=== PATIENT | female | born 1990 | race Asian ===

== ENCOUNTER 2017-01-23 16:38 | Emergency (ER) | payer SELFPAY ==
[~2017-01-23] VITALS: Ht 160 cm; Wt 54.4 kg
[2017-01-23 16:31] VITALS: BP 107/73
[~2017-01-23 16:38] MED LIST: NKM
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
[2017-01-23] MEDS ORDERED: ROBAXIN-750750 MG PO (18:05)
[2017-01-23] MEDS ORDERED: NAPROXEN500 M1 ORAL (18:05)
[2017-01-23 18:12] VITALS: BP_SYST 107; BP_SYST 109; BP_DIAS 73; BP_DIAS 74
--- NOTE | 2017-01-24 11:25 | Diagnostic Imaging Report ---
Indications: hip pain Findings: Two views of the left hip were obtained. No acute fracture is demonstrated. Alignment of the hip is within normal limits. Soft tissues are unremarkable. Impression: Negative examination of the hip.
--- NOTE | 2017-01-24 11:25 | Diagnostic Imaging Report ---
Indication: Pain 3 views of the left knee were obtained. Findings: No acute fracture, malalignment, or joint effusion are identified. Joint space is relatively well-maintained. Bone mineralization is within normal limits for age. Impression: Negative exam
--- NOTE | 2017-01-24 11:46 | Diagnostic Imaging Report ---
Indication: pain Findings: Single AP view of the pelvis was performed. No acute fracture is identified. Bone mineralization is within normal limits. Bilateral hips and sacroiliac joints appear symmetric.There is no malalignment. Soft tissues are unremarkable.
== END 2017-01-23 18:12 | disposition home or self-care (01) ==
LOC: EDBD 16:38 → EMR 17:52
DX: S70.02XA Contusion of left hip, initial encounter (principal); S70.12XA Contusion of left thigh, initial encounter; S80.02XA Contusion of left knee, initial encounter; S80.01XA Contusion of right knee, initial encounter; S16.1XXA Strain of muscle, fascia and tendon at neck level, initial encounter; V43.52XA Car driver injured in collision with other type car in traffic accident, initial encounter; Y93.9 Activity, unspecified; Y92.410 Unspecified street and highway as the place of occurrence of the external cause
CPT/HCPCS: 72170; 73502; 99284